=== PATIENT | female | born 1985 | race Caucasian/White ===

== ENCOUNTER 2019-11-21 08:57 | Day surgery (SDC) | payer MEDICAID, SELFPAY ==
[2019-11-17 12:45] VITALS: BMI 23.0
[2019-11-17 13:00] LABS: Basophils # 0.1 10^3/uL (0.0-0.1); Basophils % 1.1 %; Eosinophils # 0.1 10^3/uL (0.0-0.8); Eosinophils % 2.1 %; Hematocrit 44.9 % (37.0-47.0); Hemoglobin 14.3 g/dL (11.5-15.3); Lymphocytes # 1.7 10^3/uL (0.8-4.8); Lymphocytes % 35.8 %; Mean Corpuscular HGB Conc 31.8 g/dL (30.0-36.0); Mean Corpuscular Hemoglobin 29.2 pg (28.0-34.0); Mean Corpuscular Volume 91.6 fL (81-99); Mean Platelet Volume 9.6 fL (7.4-10.4); Monocytes # 0.3 10^3/uL (0.2-0.9); Neutrophils # 2.6 10^3/uL (1.8-7.7); Neutrophils % 54.8 %; Nucleated Red Blood Cells % 0 %; Platelet Count 301 10^3/cmm (130-400); Red Cell Distribution Width 12.8 % (12.1-15.1); White Blood Count 4.7 10^3/uL (4.0-10.0)
--- NOTE | 2019-11-17 13:00 | ANES.PREANE2 ---
Pre-Anesthetic Assessment Pre-Anesthetic Assessment: Height/Weight: Height 1.6 m Weight 58.967 kg Preop Diagnosis: Undesired fertility Proposed Procedure: Operation Date: 11/21/19 10:15 Proposed Procedures p Lap Fulg,Removal of Tubes Sterilization(Not Applicable) - Dawit Coffman MD s Hysteroscopy w/ Ablation w/ Novasure(Not Applicable) - Dawit Coffman MD Familial anesthetic complications: NOne Social: Social History: No alcohol and No tobacco Exam: Pre-Anes Outpt Exam: alert, oriented x 3, clear to auscultation bilaterally and regular rate & rhythm Airway: Cervical ROM: WNL MP: 1 Additional comments: missing Pulmonary: Pulmonary: None reported CV/HEM: CV/HEM: None reported : : None reported Hepatic: Hepatic: None reported GI: GI: None reported Metabolic: Metabolic: None reported Musc/skel: Musc/skel: None reported Comments: ankylosing spondylitis since age 22 - neck pain, back pain, inflammation in hands and arms (sporadic occurence). 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 Neuropsych: Neuropsych: None reported Anesthetic Plan: ASA status: 3 Anesthesia: General Risk of > 500 ml blood loss (7ml/kg in children): No PFSH Anesthesia PFSH: Social History Smoking and tobacco status: former smoker Quit status (tobacco): has quit using tobacco Year quit tobacco: 2016 Former quit date comment: SMOKED FOR 2 YEARS; 1/2PPD Alcohol intake: current Alcohol intake frequency: holidays/special occasions only Alcohol type: wine Female Reproductive History: Date of last menstrual period: 11/06/19 Data Anesthesia Cardiac Studies: No Data to Display
[2019-11-21] VITALS (7 sets, daily range): BP systolic 94–112; BP diastolic 58–72; PULSE 68–96; RESP 14–19; TEMP 36.6–36.7; O2SAT 95–99
[2019-11-21 09:26] LABS: OR HCG Qualitative Urine Negative (Negative)
[2019-11-21] MEDS: ketorolac 30 mg/mL INJ IVP (09:30)
[2019-11-21] MEDS: sodium chloride 0.9% 1,000 ML 30 ML IV (09:31)
[2019-11-21] MEDS: phenazopyridine 100 mg Tablet 200 MG PO (09:44)
--- NOTE | 2019-11-21 10:21 | P.ANESUD_ITS ---
Pre-Anesthetic Update Pre-Anesthetic Assessment: Date of Surgery/Procedure: 11/21/19 Preop Radha gnosis: Undesired Fertility, Menorrhagia Proposed Procedure: Operation Date: 11/21/19 10:20 Proposed Procedures p Lap Fulg,Removal of Tubes Sterilization(Not Applicable) - Dawit Coffman MD s Hysteroscopy w/ Ablation w/ Novasure(Not Applicable) - Dawit Coffman MD Any changes to Pre-Anesthetic Assessment?: No Last Intake: Intake Last Liquid Date 11/20/19 Last Liquid Time 20:00 Last Solid Date 11/20/19 Last Solid Time 21:00 Labs Last 48hrs: Laboratory Results - last 48 hr 11/17/19 12:33 Urine HCG, Qual Negative Vitals: Temperature 97.8 F 11/21/19 09:07 Temperature Source Oral 11/21/19 09:07 Pulse Rate 76 11/21/19 09:07 Pulse Rhythm 11/21/19 09:09 Pulse Strength 3+ Normal 11/21/19 09:09 Respiratory Rate 18 11/21/19 09:07 Blood Pressure 108/71 11/21/19 09:07 Blood Pressure Shannan n 83 11/21/19 09:07 Oxygen Delivery Me thod 11/21/19 09:09 Cardiac Studies: No Data to Display
--- NOTE | 2019-11-21 10:51 | P.HPUD_ITS ---
Surgery/Procedure H&P Update DATE OF PROCEDURE: November 21, 2019 DATE H&P PERFORMED: 11/17/19 H&P UPDATE INFORMATION: I have reviewed H&P completed within last 30 days, I have examined patient prior to procedure, No changes to prior documentation and H&P is in [facility] on date indicated PREOP DIAGNOSIS: Undesired Fertility, Menorrhagia PLANNED PROCEDURE: Operation Date: 11/21/19 10:20 Proposed Procedures p Lap Fulg,Removal of Tubes Sterilization(Not Applicable) - Dawit Coffman MD s Hysteroscopy w/ Ablation w/ Novasure(Not Applicable) - Dawit Coffman MD
--- NOTE | 2019-11-21 12:16 | P.OP_ITS ---
Operative Report Date of procedure: November 21, 2019 Pre-op Diagnosis: Undesired Fertility, Menorrhagia, Dysmenorrhea Post-op Diagnosis: Undesired fertility, Menorrhagia, Dysmenorrhea Procedure Done: Laparoscopic tubal fulguration with complete salpingectomy, Hysteroscopy with NovaSure endometrial ablation Specimens removed/disposition: Right and left fallopian tubes Surgeon: Dawit Coffman Banking Supervisor: LOUIE Woo Anesthesia: General Estimated blood loss (mL): 10 IV fluids (mL): 1,000 Complications: None Findings: First to second-degree uterine prolapse. Normal-appearing ovaries bilaterally. No evidence of endometriosis seen. Brief History: Patient is a 34-year-old 9, para 6-1-2-6 with an LMP of 11/06/2019. She had presented to the office on 09/25/2019 to discuss contraception. She had had a Mirena IUD, which was taken out in July 2019. She had not had a period the entire time she had the Mirena. Following removal though she developed heavy, painful bleeding, which lasted for approximately 8 days. She was changing a pad and a tampon 1-2 times per hour and was still bleeding through to her clothing. She reported having large clots and bad cramping with periods. Because of not wanting any further children, patient wanted to proceed with sterilization. However due to the bleeding, decision was made to also perform an endometrial ablation. Different sterilization options were discussed with her including risks and failure rates. Risk of ectopic was discussed. Questions were answered. She wanted complete removal of the fallopian tubes. Procedure: Patient was taken to the operating room were general anesthesia was obtained. She was prepped and draped in the usual sterile fashion in the dorsal supine position with legs in Kin style stirrups. Sequential compression boots were placed prior to starting the case. Catheter was inserted and bladder was drained. Exam under anesthesia was performed and patient was found to have first to second-degree uterine prolapse. Weighted speculum was placed in the vagina and the cervix was grasped with a single-tooth tenaculum. Uterus was sounded to approximately 9 cm. Cervix was serially dilated until a ZUMI was placed. The infraumbilical region was injected with 2% lidocaine with epinephrine. Skin incision was made with the knife in the lower edge of the navel and a size 5 trocar and sheath were inserted under direct visualization using an Optiview type technique. Trocar was removed and replaced with a laparoscope confirming intra-abdominal placement. The abdomen was inflated with carbon dioxide. Blood was seen at the end of the trocar site in the abdomen and was dripping down from the trocar. No injuries could be identified within the mesentery or omentum at the time. The anterior abdominal wall was inspected and noted to be free of adhesions. In the left and right lower quadrants lateral to the inferior epigastric vessels, the skin was injected with 2% lidocaine with epinephrine. Skin incisions were made with a knife and a 5 mm trocar and sheath were inserted under direct visualization at each site. The pelvis was thoroughly inspected and appeared normal. Using the Voyant sealing device, starting on the left side at the fimbriated end of the tube, the mesosalpinx was sealed and cut along the length of the tube. At the proximal end of the tube, the tube itself was sealed and cut. The fallopian tube was brought out through the port. Using the Voyant sealing device, starting on the right side at the fimbriated end of the tube, the mesosalpinx was sealed and cut along the length of the tube. At the proximal end of the tube, the tube itself was sealed and cut. The fallopian tube was brought out through the port. The dissection area was thoroughly inspected and noted to be hemostatic. Because of the previously seen blood, the mesentery of the bowel was further evaluated. No areas of bleeding or hematoma was noted within the mesentery. No bowel injuries were identified. No bleeding was seen from the area of the aorta or vena cava at the level of the sacral promontory. No areas of bleeding could be identified. The abdomen was deflated and the ports removed. The skin incisions were reapproximated with skin glue. The ZUMI was removed and there was minimal bleeding from the tenaculum site. The cervix was regrasped with a single-tooth tenaculum. A paracervical block was performed with a total of 10 mL of 2% lidocaine with epinephrine used. Hysteroscope was passed through the cervix. Crystalloid solution was used as a distention media. The endometrial cavity was inspected and appeared normal. No polyps or submucosal masses identified. Both tubal ostia were identified. Using the NovaSure sound, endometrial cavity length was measured at 5.5 cm. The NovaSure device was inserted and device was deployed. The device was moved up and down and left and right until no further with adjustment occurred. Uterine width was measured at 4.3 cm. Settings were entered in the NovaSure machine and wattage was set at 130 Beard. Cavity integrity check was performed and integrity confirmed. Device was then activated. Total treatment time was 53 seconds. Device was removed. The tenaculum was removed and there was minimal bleeding from the tenaculum site. Patient tolerated the procedure well. Sponge and needle counts were correct. DRAINS: None POSTOPERATIVE STATUS: The patient was transferred to the recovery room in satisfactory condition. DISPOSITION: Discharge to home when criteria was met. FOLLOWUP APPOINTMENT: Followup appointment is scheduled in my office in approximately 2 weeks. MEDICATIONS: Patient received prescriptions for: Irving 5/325, 1 to 2 tablets every 6 hours as needed for pain, #20, 0 refills Ibuprofen 800 mg, 1 tablet 3 times a day as needed for pain, #30, 0 refills.
[2019-11-21] MEDS: ondansetron 2 mg/ML SDV 2 mL 4 MG IVP (12:27)
[2019-11-21] MEDS: HYDROcodone-acetaminophen 5-325 mg Tablet PO (13:17)
== END 2019-11-21 13:47 | disposition home or self-care (01) ==
PROVIDERS: Family Provider Nurse Practitioner Family; PCP Family Medicine; Visit Provider Obstetrics & Gynecology
PROC: (CPT 58661; principal; 2019-11-21 10:20)
PROC: 0U598ZZ Destruction of Uterus, Via Natural or Artificial Opening Endoscopic (ICD-10-PCS; CPT 58563; 2019-11-21 10:20)
DX: Z30.2 Encounter for sterilization (principal); N92.0 Excessive and frequent menstruation with regular cycle; N94.6 Dysmenorrhea, unspecified; G89.18 Other acute postprocedural pain; Z82.49 Family history of ischemic heart disease and other diseases of the circulatory system; Z87.891 Personal history of nicotine dependence
CPT/HCPCS: 58563; 58670; 12345; 36415; 81025; 84703; 85025; 88302; 96375; J1100; J1885; J2001; J2250; J2405; J2704; J2710; J3010; J3490; J7030

== ENCOUNTER 2019-12-02 11:30 | Emergency (ER) | payer MEDICAID, SELFPAY ==
[2019-12-02 11:32] VITALS: BP 112/65; PULSE 90; RESP 16; TEMP 37.1; O2SAT 98; BMI 21.2
[2019-12-02 11:46] VITALS: RESP 17
--- NOTE | 2019-12-02 11:48 | XR_ITS ---
WS: [id number] XR foot LT min 3V* [id number] REASON FOR EXAM: injury, pain FINDINGS: This study shows an os tibialis externum. The remaining phalanges, metatarsals, tarsals were normal. The calcaneus appear to be normal. No soft tissue masses. XR/XR foot LT min 3V* [id number] IMPRESSION: Negative foot for acute changes A prominent os tibialis externum is seen.
--- NOTE | 2019-12-02 11:49 | ED_ITS ---
HPI - Extremity Problem General: Chief complaint: Extremity Injury, Lower Stated complaint: LEFT FOOT PAIN Time Seen by Provider: 12/02/19 11:38 History of Present Illness: HPI Narrative: Angely Pablo comes in today for complaints of injury to the left foot. Patient reports getting bucked off her horse and her left foot getting entangled in the stirrup. Patient appears well. Patient has been weightbearing to the foot. Patient does have some bruising to the dorsal, proximal, lateral aspect of the foot. No obvious deformity. MD Complaint: extremity pain Review of Systems General: Reports: 10 or more systems reviewed and unremarkable except in HPI and below Musc: Reports: joint pain PFSH ED PFSH: Medical History (Updated 12/02/19 @ 12:31 by FEROZ Goodrich) Dysmenorrhea Menorrhagia Surgical History (Updated 11/19/19 @ 18:59 by Dawit Coffman MD) History of cholecystectomy (~2002) Laparoscopic. Performed in [place]. Hx of laparoscopy (~2008) evaluation for pain. Diagnosed with endometriosis which was ablated. Performed at [facility] in [place]. Social History (Updated 11/19/19 @ 19:01 by Dawit Coffman MD) Smoking and tobacco status: former smoker Quit status (tobacco): has quit using tobacco Year quit tobacco: 2017 Former quit date comment: SMOKED FOR 2 YEARS; 1/2PPD Alcohol intake: current Alcohol intake frequency: holidays/special occasions only Alcohol type: wine Female Reproductive History: Date of last menstrual period: 11/19/19 Physical Exam Const: COMMON NORMALS: no apparent distress and oriented x3 GENERAL APPEARANCE: cooperative HENMT: COMMON NORMALS: normocephalic, external ears normal, EAC's normal, TM's normal bilaterally and external nose normal HEAD & SCALP: normal to inspection and normocephalic FACE & SINUS: normal facial exam NOSE: external nose normal GENERAL EAR: hearing not grossly impaired EXTERNAL EAR: Yes external ears normal EXTERNAL AUDITORY CANAL: EAC's normal TYMPANIC MEMBRANE: TM's normal bilaterally MOUTH: oral and palatal mucosa normal THROAT: posterior oropharynx normal Eye: COMMON NORMALS: PERRL and EOMs intact bilaterally PUPIL: Yes PERRL Neck/C-Spine: COMMON NORMALS: full ROM and no lymphadenopathy Lymph: LYMPHATIC: no lymphedema noted Chest: COMMONS NORMALS: inspection of chest normal and palpation of chest normal Resp: COMMON NORMALS: normal respiratory effort and clear to auscultation bilaterally AUSCULTATION: clear to auscultation bilaterally Cardio: COMMON NORMALS: regular rate and regular rhythm RATE: regular rate RHYTHM: regular rhythm GI: COMMON NORMALS: normal to inspection, nondistended, normoactive bowel sounds and non-tender : COMMON NORMALS: Yes no CVA tenderness BLADDER/KIDNEY EXAM: Yes no CVA tenderness Back/Pelvis: COMMON NORMALS: no CVA tenderness and thoracic and lumbar spine normal to inspection Extremity: NARRATIVE EXTREMITY EXAM: Ecchymosis, swelling, and tenderness is noted to the lateral dorsal aspect of the left foot. Distal neurovascular is normal. Patient is guarded with moving the middle digits but shows movement to the fifth and first digit. Prompt capillary refill is noted. Pedal pulses are intact. No ankle pain is noted on deep palpation. GENERAL: Yes edema Neuro: COMMON NORMALS: oriented x3, moves all extremities and no focal motor deficits Psych: COMMON NORMALS: mental status grossly normal and cooperative Skin: COMMON NORMALS: no rashes or lesions noted GENERAL SKIN EXAM: no rashes or lesions noted Course Vital Signs: Vital signs: Vital Signs Temperature 98.7 F 12/02/19 11:32 Pulse Rate 90 12/02/19 11:32 Respiratory Rate 17 12/02/19 11:46 Blood Pressure 112/65 12/02/19 11:32 Pulse Oximetry 98 12/02/19 11:32 MDM - Extremity (Nontraumatic) MDM Narrative: Medical decision making narrative: Patient comes in today with complaints of injury to the left foot. Patient explains a [facility] a [facility]. On exam patient has bruising to the dorsal aspect of the foot with minimal swelling. Pulses are intact. Patient has pain with movement of the middle digits of the foot. Prompt capillary refill is noted. Differential diagnosis includes fracture, sprain, contusion. X-rays were without obvious fracture to the foot. Due to the nature of the injury suspect possibly a navicular fracture although this was not indicated on x-ray. Patient was placed in a orthopedic boot and recommended to do know to light weightbearing to the foot especially with any pain. Patient was prescribed crutches and need for follow-up with orthopedist or podiatry. Patient reported understanding. Discharge Plan Discharge Patient Disposition: Home, Self-Care Clinical Impression: Foot sprain Qualifiers: Encounter type: initial encounter Laterality: left Qualified Code(s): S93.602A - Unspecified sprain of left foot, initial encounter Condition: Stable Prescriptions: New hydrocodone-acetaminophen 5-325 mg tablet 1 tab PO Q8H PRN (Reason: pain (scale score 7-10)) Qty: 5 RF: 0 No Action promethazine 25 mg tablet 25 mg PO Q6H PRN (Reason: nausea and vomiting) Qty: 20 RF: 0 ibuprofen 800 mg tablet 800 mg PO TID PRN (Reason: pain) Qty: 30 RF: 0 Discharge Orders: Discharge Order (Routine); Ordered 12/02/19 Ordered By: Gutierrez Mariano Referrals: Viry Trinidad FNP [Family Provider] - Caitie Giraldo MD [Primary Care Provider] - Discharge Diet: Usual diet Discharge Activity: Increase activity as tolerated Patient Instructions: Foot Sprain (ED) Activity Restrictions/Additional Instructions: no weight bearing until you can do it without pain Crutches Orthopedic boot for comfort Drink plenty of fluids with medications Follow-up with primary care in one week Follow-up with podiatry for further evaluation and treatment Coding Level of Care Code ED Indoor Plant Technician for Jaquan Fwd Exam Comprehensive
[2019-12-02 12:44] VITALS: RESP 16
--- NOTE | 2019-12-04 12:41 | DCPLANNER ---
marketing traffic manager had message to schedule a follow up appointment for patient with ortho. marketing traffic manager called the ortho clinic, spoke with Pat, gave clinic patients information. marketing traffic manager was told that patients information would be printed and reviewed. Clinic will call manager case and patient with appointment information.
--- NOTE | 2019-12-05 15:47 | DCPLANNER ---
Patient has a follow up appointment scheduled for Sunday, December 08, 2019 at 2:[address] Spain, clinic will call patient with appointment information.
--- NOTE | 2019-12-12 10:38 | DCPLANNER ---
Patient did not attend appointment scheduled for 12.08.19 with ortho.
== END 2019-12-02 12:44 | disposition home or self-care (01) ==
PROVIDERS: Emergency Provider Nurse Practitioner Family; Family Provider Nurse Practitioner Family; PCP Family Medicine
DX: S93.602A Unspecified sprain of left foot, initial encounter (principal); Z87.891 Personal history of nicotine dependence; V80.010A Animal-rider injured by fall from or being thrown from horse in noncollision accident, initial encounter; Y93.52 Activity, horseback riding
CPT/HCPCS: 12345; 73630; 99281; 99283; E0114

== ENCOUNTER 2019-12-12 14:54 | Outpatient (CLI) | payer MEDICAID, SELFPAY ==
--- NOTE | 2019-12-12 15:20 | MR_ITS ---
WS: [id number] INDICATION: Left foot pain TECHNIQUE: MRI of the left foot without gadolinium enhancement. Axial T1 and axial STIR axial PD axia l T2 sagittal STIR coronal PD coronal T2 FINDINGS: Second metatarsal normally aligned with the second cuneiform. Metatarsal bases are normal i n appearance. Normal metatarsals. Mild hallux valgus. Diffuse edema consistent with nondisplaced fracture involving the cuboid. Diffuse edema involving the mid distal cuboid extending to the TMT joint with edema. Diffuse soft tissue edema overlying the lat eral foot. Navicular appears intact. Cuneiforms appear intact. Normal distal Achilles. Normal peroneal tendons. Normal flexor compartment tendons. Normal plantar fascia. No other visualized acute fractures. Talar dome is normal. Normal calcaneus. MR/MR foot LT wo con* [id number] IMPRESSION: 1. Nondisplaced acute fracture involving the cuboid with diffuse edema extend ing into the TMT joint with edema in the joint. Metatarsal bases appear normal. 2. Diffuse soft tissue edema overlying the lateral aspect of the foot. 3. Cuneiforms appear normal. 4. Mild hallux valgus. 5. No other visualized fractures.
== END 2019-12-12 14:55 | disposition home or self-care (01) ==
PROVIDERS: Family Provider Nurse Practitioner Family; PCP Family Medicine; Visit Provider Orthopaedic Surgery
DX: S92.215A Nondisplaced fracture of cuboid bone of left foot, initial encounter for closed fracture (principal); X58.XXXA Exposure to other specified factors, initial encounter; M79.672 Pain in left foot
CPT/HCPCS: 73718

== ENCOUNTER → 2020-06-07 10:31 | Outpatient (BNVA) | payer MEDICAID, SELFPAY | PROVIDERS: Family Provider Nurse Practitioner Family; PCP Family Medicine; Visit Provider Nurse Practitioner Family | DX: R07.9 Chest pain, unspecified (principal); R53.83 Other fatigue | CPT/HCPCS: 71046; 80053; 80061; 82306; 82607; 83735; 84443; 85025; 85379 ==

== ENCOUNTER → 2020-06-19 12:07 | Outpatient (BNVA) | payer MEDICAID, SELFPAY | PROVIDERS: Family Provider Nurse Practitioner Family; PCP Family Medicine; Visit Provider Nurse Practitioner Family | DX: R50.9 Fever, unspecified (principal) | CPT/HCPCS: 87071; 87880 ==

== ENCOUNTER → 2021-05-06 12:15 | Outpatient (BNVA) | payer BC, SELFPAY | PROVIDERS: Family Provider Nurse Practitioner Family; PCP Nurse Practitioner Family; Visit Provider Nurse Practitioner Family | DX: J02.9 Acute pharyngitis, unspecified (principal); Z20.822 Contact with and (suspected) exposure to COVID-19; J06.9 Acute upper respiratory infection, unspecified | CPT/HCPCS: 87071; 87635; 87880 ==

== ENCOUNTER → 2021-06-16 11:56 | Outpatient (BNVA) | payer BC, SELFPAY | PROVIDERS: Family Provider Nurse Practitioner Family; PCP Nurse Practitioner Family; Visit Provider Nurse Practitioner Family | DX: N63.0 Unspecified lump in unspecified breast (principal) | CPT/HCPCS: 80053; 84145; 84146; 84443; 85025 ==

== ENCOUNTER 2021-10-20 06:31 | Emergency (ER) | payer BC, MEDICAID, SELFPAY ==
[2021-10-20 06:37] VITALS: BP 100/70; PULSE 103; RESP 18; TEMP 38.3; O2SAT 99; BMI 23.0
[2021-10-20 06:44] VITALS: O2SAT 98
--- NOTE | 2021-10-20 08:13 | W.ED.COVID ---
Documented by User: FEROZ Baker 10/20/21 16:31 HPI - COVID General: Chief Complaint: COVID symptoms Stated Complaint: fever, sob Time Seen by Provider: 10/20/21 06:56 Triage information: Has fever, cough or shortness of breath. No known COVID + exposure last 14 days History of Present Illness: HPI Narrative: Patient presents with Covid-like symptoms. Patient has been traveling out of state. Patient presented and started with symptoms yesterday of high fever body aches chills nausea congestion. Denies shortness of breath. MD complaint: reported COVID exposure and has COVID symptoms Prior covid testing: no COVID 19 common symptoms: positive fever(s), chills, fatigue, body aches, headache(s), nasal congestion and nausea; negative non-productive cough, productive cough or dyspnea COVID 19 other sytmptoms: negative chest pain Treatment prior to arrival: acetaminophen and ibuprofen COVID Results: SARS-CoV-2 RNA (RT-PCR) Not detected (NOT DETECTED) 05/06/21 12:15 05/06/21 Review of Systems Const: Reports: fever(s), chills, body aches and fatigue Eyes: Denies: change in vision or blurry vision ENMT: Reports: nasal congestion Card: Denies: chest pain or dyspnea on exertion Resp: Denies: dyspnea, productive cough or non-productive cough GI: Reports: nausea Musc: Denies: extremity pain Skin/Breast: Denies: rash Neuro: Reports: headache(s) Psych: Denies: anxiety or depression Delon/Lymph: Denies: easy bruising PFS ED PFSH: Medical History Contraception management 11/21/2019: Laparoscopic bilateral complete salpingectomy. Dysmenorrhea Menorrhagia Surgical History History of cholecystectomy (~2002) Laparoscopic. Performed in [place]. History of endometrial ablation (11/21/19) Hysteroscopy with NovaSure endometrial ablation. Dx menorrhagia, Dysmenorrhea. Performed by Dr. Coffman at [facility] in [place], [place]. History of tubal ligation (11/21/19) Laparoscopic bilateral complete salpingectomy. Performed by Dr. Coffman at [facility] in [place], [place]. Hx of laparoscopy (~2008) evaluation for pain. Diagnosed with endometriosis which was ablated. Performed at [facility] in [place]. Family History Grandfather Heart disease PATERNAL Mother Breast cancer Grandmother Breast cancer Maternal Family/Other Breast cancer GREAT-GRANDMOTHER Father Heart disease Social History Smoking and tobacco status: never smoked Quit status (tobacco): has quit using tobacco Year quit tobacco: 2016 Former quit date comment: SMOKED FOR 2 YEARS; 1/2PPD Second hand smoke exposure: No Alcohol intake: current Alcohol intake frequency: holidays/special occasions only Alcohol type: wine Lives independently: Yes Household members: significant other Marital status: Current occupational status: employed 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; 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 History of recent travel: No Current gender identity: Female Special eunice needs: Yes Agree to transfusion: Yes Female Reproductive History: Date of last menstrual period: 11/19/19 Physical Exam Const: COMMON NORMALS: no acute distress, average body habitus and patient oriented x3 HENMT: COMMON NORMALS: normocephalic HEAD & SCALP: normal to inspection and normocephalic FACE & SINUS: normal facial exam Eye: COMMON NORMALS: conjunctivae normal GENERAL EYE: appearance normal, both eyes and all related structures CONJUNCTIVA: Yes conjunctivae normal Neck/C-Spine: COMMON NORMALS: no JVD Chest: COMMONS NORMALS: normal inspection of the chest Resp: COMMON NORMALS: normal respiratory effort Cardio: COMMON NORMALS: no JVD RATE: tachycardic GI: INSPECTION: Yes normal to inspection Extremity: COMMON NORMALS: normal to inspection and full ROM Neuro: COMMON NORMALS: patient oriented x3 Course Vital Signs: Vital signs: Vital Signs Temperature 100.9 F H 10/20/21 06:37 Pulse Rate 103 H 10/20/21 06:37 Respiratory Rate 18 10/20/21 06:37 Blood Pressure 100/70 10/20/21 06:37 Pulse Oximetry 98 10/20/21 06:44 MDM - COVID MDM Narrative Medical decision making narrative: Patient presents with mild Covid-like symptoms. Lab tests obtained awaiting results. Medication prescribed patient encouraged follow-up your primary care provider if worsening symptoms. Lab Data COVID Results: SARS-CoV-2 RNA (RT-PCR) Not detected (NOT DETECTED) 05/06/21 12:15 05/06/21 Discharge Plan Discharge Patient Disposition: Home Clinical Impression: Close exposure to severe acute respiratory syndrome coronavirus 2 (SARS-CoV-2), Close exposure to 2019-nCoV Condition: Stable Prescriptions: New Zofran 4 mg tablet 4 mg PO Q8H 3 Days Qty: 9 0RF Decadron 6 mg tablet 6 mg PO DAILY Qty: 7 0RF No Action dexamethasone 6 mg tablet 6 mg PO DAILY Qty: 7 0RF albuterol sulfate [ProAir HFA] 90 mcg/actuation HFA aerosol inhaler 2 puff INHALATION Q6H PRN (Reason: shortness of breath or wheezing) Qty: 18 2RF ibuprofen 800 mg tablet 800 mg PO TID PRN (Reason: pain) Qty: 30 0RF Discharge Orders: Discharge ED (Routine); Ordered 10/20/21 Ordered By: Uziel Sanchez Referrals: Eugenia Ramirez FNP [Primary Care Provider] - Discharge Diet: As Directed Discharge Activity: Increase activity as tolerated Patient Instructions: COVID-19 (Coronavirus Disease 2019) (ED) Activity Restrictions/Additional Instructions: Follow-up with medical provider as directed. Take medications as prescribed. Return to the ER or your medical provider if condition worsens. Please read and understand discharge instructions. If any questions ask please. Coding Level of Care Code ED Photograph Editor for g Fwd Exam Comprehensive Documented by User: Tommy Ware DO 10/21/21 06:20 HPI - COVID General: Chief Complaint: COVID symptoms Stated Complaint: fever, sob Time Seen by Provider: 10/20/21 06:56 COVID Results: SARS-CoV-2 RNA (RT-PCR) Not detected (NOT DETECTED) 05/06/21 12:15 05/06/21 [facility] ED PFSH: Medical History Contraception management 11/21/2019: Laparoscopic bilateral complete salpingectomy. Dysmenorrhea Menorrhagia Surgical History History of cholecystectomy (~2002) Laparoscopic. Performed in [place]. History of endometrial ablation (11/21/19) Hysteroscopy with NovaSure endometrial ablation. Dx menorrhagia, Dysmenorrhea. Performed by Dr. Coffman at [facility] in [place], [place]. History of tubal ligation (11/21/19) Laparoscopic bilateral complete salpingectomy. Performed by Dr. Coffman at [facility] in [place], [place]. Hx of laparoscopy (~2008) evaluation for pain. Diagnosed with endometriosis which was ablated. Performed at [facility] in [place]. Family History Grandfather Heart disease PATERNAL Mother Breast cancer Grandmother Breast cancer Maternal Family/Other Breast cancer GREAT-GRANDMOTHER Father Heart disease Social History Smoking and tobacco status: never smoked Quit status (tobacco): has quit using tobacco Year quit tobacco: 2016 Former quit date comment: SMOKED FOR 2 YEARS; 1/2PPD Second hand smoke exposure: No Alcohol intake: current Alcohol intake frequency: holidays/special occasions only Alcohol type: wine Lives independently: Yes Household members: significant other Marital status: Current occupational status: employed 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 Agree with assessment and plan. Lab Data COVID Results: SARS-CoV-2 RNA (RT-PCR) Not detected (NOT DETECTED) 05/06/21 12:15 08/10/21 Discharge Plan Discharge Patient Disposition: Home Clinical Impression: Close exposure to severe acute respiratory syndrome coronavirus 2 (SARS-CoV-2), Close exposure to 2019-nCoV Condition: Stable Prescriptions: New Zofran 4 mg tablet 4 mg PO Q8H 3 Days Qty: 9 0RF Decadron 6 mg tablet 6 mg PO DAILY Qty: 7 0RF No Action dexamethasone 6 mg tablet 6 mg PO DAILY Qty: 7 0RF albuterol sulfate [ProAir HFA] 90 mcg/actuation HFA aerosol inhaler 2 puff INHALATION Q6H PRN (Reason: shortness of breath or wheezing) Qty: 18 2RF ibuprofen 800 mg tablet 800 mg PO TID PRN (Reason: pain) Qty: 30 0RF Discharge Orders: Discharge ED (Routine); Ordered 10/20/21 Ordered By: Uziel Sanchez Referrals: Eugenia Ramirez FNP [Primary Care Provider] - Discharge Diet: As Directed Discharge Activity: Increase activity as tolerated Patient Instructions: COVID-19 (Coronavirus Disease 2019) (ED) Activity Restrictions/Additional Instructions: Follow-up with medical provider as directed. Take medications as prescribed. Return to the ER or your medical provider if condition worsens. Please read and understand discharge instructions. If any questions ask please. Coding Level of Care Code ED Photograph Editor for Jaquan Fwd Exam Comprehensive
== END 2021-10-20 08:19 | disposition home or self-care (01) ==
PROVIDERS: Emergency Provider Nurse Practitioner Family; PCP Nurse Practitioner Family
DX: Z20.822 Contact with and (suspected) exposure to COVID-19 (principal); Z87.891 Personal history of nicotine dependence
CPT/HCPCS: 12345; 99281

== ENCOUNTER → 2021-12-18 12:02 | Outpatient (BNVA) | payer BC, MEDICAID, SELFPAY | PROVIDERS: PCP Nurse Practitioner Family; Visit Provider Nurse Practitioner Family | DX: Z00.00 Encounter for general adult medical examination without abnormal findings (principal); Z12.4 Encounter for screening for malignant neoplasm of cervix | CPT/HCPCS: 87624 ==

== ENCOUNTER 2022-05-24 11:20 | Emergency (ER) | payer BC, MEDICAID, SELFPAY ==
[2022-05-24 11:22] VITALS: BP 104/71; PULSE 74; RESP 16; TEMP 36.6; O2SAT 100; BMI 23.0
--- NOTE | 2022-05-24 11:36 | XRR_ITS ---
PROCEDURE INFORMATION: Exam: XR Left Forearm Exam date and time: 05/24/2022 12:01 PM Age: 37 years old Clinical indication: Injury or trauma; Other: Kicked by horse; Blunt trauma (contusions or hematomas); Arm, upper; Left TECHNIQUE: Imaging protocol: Radiologic exam of the Left forearm. Views: 2 views. COMPARISON: No relevant prior studies available. FINDINGS: Bones/joints: Normal. Soft tissues: Normal. XR/XR forearm LT 2V [id number] IMPRESSION: No acute findings.
--- NOTE | 2022-05-24 11:44 | ED_ITS ---
HPI - Extremity Problem General: Chief complaint: Extremity Injury, Upper Stated complaint: Left Arm injury Time Seen by Provider: 05/24/22 11:36 Source: patient Mode of arrival: ambulatory Limitations: no limitations History of Present Illness: 37-year-old female presents to the ER today for left forearm pain x24 hours. Patient reports she was kicked by a horse yesterday afternoon. Patient reports she has a small skin abrasion. She reports some mild swelling and bruising to the area. She reports pain specifically over the area of hit her but also pain radiating up into the elbow and down into her hand. Patient reports tingling but denies any numbness. Patient reports normal range of motion though some pain elicited with movement of the wrist. Review of Systems General: Reports: 10 or more systems reviewed and unremarkable except in HPI and below PFSH ED PFSH: Medical History Contraception management 11/21/2019: Laparoscopic bilateral complete salpingectomy. Dysmenorrhea Menorrhagia Surgical History History of cholecystectomy (~2002) Laparoscopic. Performed in [place]. History of endometrial ablation (11/21/19) Hysteroscopy with NovaSure endometrial ablation. Dx menorrhagia, Dysmenorrhea. Performed by Dr. Coffman at [facility] [place] [place] in [place], [place]. History of tubal ligation (11/21/19) Laparoscopic bilateral complete salpingectomy. Performed by Dr. Coffman at [facility] [place] in [place], [place]. Hx of laparoscopy (~2008) evaluation for pain. Diagnosed with endometriosis which was ablated. Performed at [facility] in [place]. Family History Grandfather Heart disease PATERNAL Mother Breast cancer Grandmother Breast cancer Maternal Family/Other Breast cancer GREAT-GRANDMOTHER Father Heart disease Social History Smoking and tobacco status: never smoked Quit status (tobacco): has quit using tobacco Year quit tobacco: 2016 Former quit date comment: SMOKED FOR 2 YEARS; 1/2PPD Second hand smoke exposure: No Alcohol intake: current Alcohol intake frequency: holidays/special occasions only Alcohol type: wine Lives independently: Yes Household members: significant other Marital status: Current occupational status: employed 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; 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 History of recent travel: No Current gender identity: Female Special eunice needs: Yes Agree to transfusion: Yes Female Reproductive History: Date of last menstrual period: 11/19/19 Physical Exam Const: COMMON NORMALS: no acute distress, average body habitus, patient oriented x3, no limitations, healthy appearing, alert and well nourished Resp: COMMON NORMALS: normal respiratory effort EFFORT & INSPECTION: Yes able to speak in complete sentences Cardio: COMMON NORMALS: regular rate and regular rhythm RATE: regular rate RHYTHM: regular rhythm Extremity: NARRATIVE EXTREMITY EXAM: Patient has a an abrasion to the left distal forearm. This is not bleeding and does not appear infected. There is also bruising surrounding this area. Patient is tender over the area of the skin abrasion and has some pain with flexion and extension of the wrist with movement. No major swelling is noted. Patient has normal pulses. Normal sensation. Neuro: COMMON NORMALS: patient oriented x3 SENSORIUM/ORIENTATION: Yes alert Psych: COMMON NORMALS: mental status grossly normal, Normal thought process present and cooperative THOUGHT PROCESS: Normal thought process present Skin: COMMON NORMALS: no rashes or lesions noted NARRATIVE SKIN EXAM: Skin abrasion to left forearm that does not appear infected. GENERAL SKIN EXAM: no rashes or lesions noted Course ED course: 37-year-old female presents to the ER today for left forearm pain x24 hours. Patient reports she was kicked by a horse yesterday afternoon. Patient reports she has a small skin abrasion. She reports some mild swelling and bruising to the area. She reports pain specifically over the area of hit her but also pain radiating up into the elbow and down into her hand. Patient reports tingling but denies any numbness. Patient reports normal range of motion though some pain elicited with movement of the wrist. We will get an x- ray of the forearm at this time. Vital Signs: Vital signs: Vital Signs Temperature 97.9 F 05/24/22 11:22 Pulse Rate 74 05/24/22 11:22 Respiratory Rate 16 05/24/22 11:22 Blood Pressure 104/71 05/24/22 11:22 Pulse Oximetry 100 05/24/22 11:22 Oxygen Delivery Me thod 05/24/22 11:22 MDM - Extremity (Nontraumatic) Medical Decision Making 37-year-old female presents to the ER today for left forearm pain x24 hours. Patient reports she was kicked by a horse yesterday afternoon. Patient reports she has a small skin abrasion. She reports some mild swelling and bruising to the area. She reports pain specifically over the area of hit her but also pain radiating up into the elbow and down into her hand. Patient reports tingling but denies any numbness. Patient reports normal range of motion though some pain elicited with movement of the wrist. We will get an x-ray of the forearm at this time. X-rays negative. Recommended patient apply topical antibiotic such as Neosporin to skin wound. Recommend ice 20 minutes on and 2 minutes off for the next week or so. Take naproxen or Aleve twice daily x 1 week. Likely this is just a bad bruise. Follow-up with PCP in 1 to 2 weeks if no improvement. Return to the ER with any new or worsening symptoms. Patient verbalized understanding and was in agreement with the treatment plan. Lab Data Radiology Impressions Forearm X-Ray 05/24/22 11:36 IMPRESSION: No acute findings. Critical Care Time Critical Care Time: Critical Care Time: No Discharge Plan Discharge Patient Disposition: Home Clinical Impression: Contusion of forearm, left Qualifiers: Encounter type: initial encounter Qualified Code(s): S50.12XA - Contusion of left forearm, initial encounter Condition: Stable Prescriptions: No Action promethazine-DM 6.25-15 mg/5 mL syrup 5 - 10 ml PO Q6H PRN (Reason: cough) Qty: 200 0RF azithromycin [Zithromax Z-Francisco] 250 mg tablet See Rx Instructions PO .COMPLEX Qty: 6 0RF Rx Instructions: For 250 mg dose pack: take 500 mg today (day 1), then 250 mg for 4 days (days 2-5) PO methylprednisolone [Medrol (Francisco)] 4 mg tablets,dose pack See Rx Instructions PO PER PKG DIR Qty: 21 0RF Rx Instructions: PO PER PKG DIR albuterol sulfate [ProAir HFA] 90 mcg/actuation HFA aerosol inhaler 2 puff inhalation QID PRN (Reason: shortness of breath or wheezing) Qty: 8.5 6RF budesonide-formoterol [Symbicort] 160-4.5 mcg/actuation HFA aerosol inhaler 2 puff inhalation Q12H Qty: 10.2 5RF ibuprofen 800 mg tablet 800 mg PO TID PRN (Reason: pain) Qty: 30 0RF Discharge Orders: Discharge ED (Routine); Ordered 05/24/22 Ordered By: Heather Lambert Referrals: Eugenia Ramirez FNP [Primary Care Provider] - Discharge Diet: Usual diet Discharge Activity: Increase activity as tolerated Patient Instructions: Opioid Safety Activity Restrictions/Additional Instructions: Apply ice to forearm to reduce swelling. Apply topical antibiotic to skin wound. Take ibuprofen, Aleve or naproxen x1 week. Follow-up with PCP in 1 to 2 weeks if no improvement. Return to the ER with any new or worsening symptoms. Coding Level of Care Code ED Patient Financial Services Manager for Jaquan Locke
[2022-05-24 12:00] VITALS: PULSE 72
== END 2022-05-24 12:40 | disposition home or self-care (01) ==
PROVIDERS: Emergency Provider Physician Assistant; PCP Nurse Practitioner Family
DX: S50.12XA Contusion of left forearm, initial encounter (principal); Z87.891 Personal history of nicotine dependence; W55.12XA Struck by horse, initial encounter
CPT/HCPCS: 73090; 99283

== ENCOUNTER → 2022-12-10 10:38 | Outpatient (BNVA) | payer BC, MEDICAID, SELFPAY | PROVIDERS: PCP Nurse Practitioner Family; Visit Provider Nurse Practitioner Family | DX: Z00.00 Encounter for general adult medical examination without abnormal findings (principal); R53.83 Other fatigue; Z13.6 Encounter for screening for cardiovascular disorders; N63.0 Unspecified lump in unspecified breast | CPT/HCPCS: 80053; 80061; 84443; 85025 ==

== ENCOUNTER → 2023-12-17 15:12 | Outpatient (BNVA) | payer BC, MEDICAID, SELFPAY | PROVIDERS: PCP Nurse Practitioner Family; Visit Provider Nurse Practitioner Family | DX: R07.0 Pain in throat (principal) | CPT/HCPCS: 87071; 87880 ==

== ENCOUNTER 2024-05-02 14:53 | Emergency (ER) | payer BC, MEDICAID, SELFPAY ==
[2024-05-02 15:15] VITALS: BP 99/68; PULSE 91; RESP 16; TEMP 36.8; O2SAT 96
[2024-05-02 16:03] LABS: HCG, Serum Qual Negative (Negative)
[2024-05-02 16:14] LABS: Charge for UA Resulting for Rev
[2024-05-02 16:44] LABS: Urine Appearance Slightly Cloudy (CLEAR); Urine Color Orange (Yellow)
[2024-05-02 16:47] LABS: Add Urine Culture? Yes; Bacteria Urine 1+ /hpf; WBC Urine >100 /hpf (0-5)
[2024-05-02 17:29] LABS: Basophils % 0.4 %; Eosinophils # 0.1 10^3/uL (0.0-0.8); Hematocrit 41.8 % (36-47); Lymphocytes # 1.3 10^3/uL (0.8-4.8); Lymphocytes % 14.1 %; Mean Corpuscular HGB Conc 31.8 g/dL (30-55); Mean Corpuscular Hemoglobin 28.7 pg (27-33); Mean Corpuscular Volume 90.3 fl (85-98); Monocytes # 0.5 10^3/uL (0.2-0.9); Monocytes % 5.4 %; Neutrophils % 78.8 %; Nucleated Red Blood Cells % 0 %; Platelet Count 283 10^3/cmm (157-399); Red Blood Count 4.63 10^6/uL (3.85-5.65); Red Cell Distribution Width 12.6 % (12.1-15.1)
--- NOTE | 2024-05-02 17:35 | W.ED.FEMALGU ---
HPI - Female Genitourinary General: Chief complaint: Urogenital-Female Stated complaint: painful urination Time Seen by Provider: 05/02/24 17:11 Source: patient Mode of arrival: ambulatory Limitations: no limitations History of Present Illness: Patient presents emergency department today accompanied by family for evaluation and treatment of dysuria and urinary frequency. Patient states she noticed onset of symptoms . She states she seems to have recurrent issues with urinary tract infections and urinary symptoms. She states she went to the [facility] and got Azo which she has been taking since that time. However, she continues to have her symptoms which is what brings her in today. She has not had nausea, vomiting, or fever. She complains of some low back ache but no flank pain or mid back pain. She indicated that back in 2008 she had been having issues with UTIs and had a procedure performed on her bladder-not sure what they did, but since then has still had off-and-on issues with recurrent urinary symptoms. Does not have a urologist currently. Review of Systems General: Reports: 10 or more systems reviewed and unremarkable except in HPI and below PFSH ED PFSH: Medical History Contraception management 11/21/2019: Laparoscopic bilateral complete salpingectomy. Dysmenorrhea Menorrhagia Surgical History History of tubal ligation (11/21/19) Laparoscopic bilateral complete salpingectomy. Per[place]. Coffman [place] [facility] [place], [place]. History of endometrial ablation (11/21/19) Hysteroscopy with NovaSure endometrial ablation. Dx menorrhagia, Dysmenorrhea. Performed by Dr. Coffman at [facility] [place], [place]. Hx of laparoscopy (~2008) evaluation for pain. Diagnosed with endometriosis which was ablated. Performed at [facility] in [place]. History of cholecystectomy (~2002) Laparoscopic. Performed in [place]. Family History Grandfather Heart disease PATERNAL Mother Breast cancer Grandmother Breast cancer Maternal Family/Other Breast cancer GREAT-GRANDMOTHER Father Heart disease Social History Smoking and tobacco/nicotine status: never used tobacco/nicotine Quit status (tobacco/nicotine): has quit using Year quit tobacco: 2017 Former quit date comment: SMOKED FOR 2 YEARS; 1/2PPD Second hand smoke exposure: No Alcohol intake: current Alcohol intake frequency: holidays/special occasions only Alcohol type: wine Substance/Drug Use: never Lives independently: Yes Household members: significant other Marital status: Current occupational status: employed 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; 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 Current gender identity: Female Special eunice needs: Yes Agree to transfusion: Yes Physical Exam Const: COMMON NORMALS: no acute distress, average body habitus, patient oriented x3 and alert HENMT: COMMON NORMALS: normocephalic, atraumatic, hearing grossly normal bilaterally and moist oral mucous membranes HEAD & SCALP: normocephalic and atraumatic Eye: COMMON NORMALS: Equal, round and reactive pupils present, EOMs intact bilaterally and conjunctivae normal CONJUNCTIVA: Yes conjunctivae normal PUPIL: Yes Equal, round and reactive pupils present Neck/C-Spine: COMMON NORMALS: no JVD Lymph: LYMPHATIC: no lymphadenopathy noted Resp: COMMON NORMALS: normal respiratory effort, No retractions and No use of accessory muscles Cardio: COMMON NORMALS: no JVD and regular rate RATE: regular rate GI: OTHER: Abdomen soft. Nontender on palpation. Normal active bowel sounds throughout. Extremity: COMMON NORMALS: normal to inspection, full ROM and capillary refill normal Neuro: COMMON NORMALS: patient oriented x3 SENSORIUM/ORIENTATION: Yes alert Psych: COMMON NORMALS: mental status grossly normal, cooperative, normal affect, speech normal and activity/motor behavior normal SPEECH: Yes normal speech Course Vital Signs: Vital signs: Vital Signs Temperature 98.3 F 05/02/24 15:15 Pulse Rate 91 05/02/24 15:15 Respiratory Rate 16 05/02/24 15:15 Blood Pressure 99/68 05/02/24 15:15 Pulse Oximetry 96 05/02/24 15:15 Oxygen Delivery Me thod Room Air 05/02/24 15:15 MDM - Female Medical Decision Making Patient presents today with a 4 to 5-day history of dysuria and urinary frequency. She has been taking Azo without improvement. Patient's urine specimen is only partially run due to the staining of Azo causing an inability to read the specimen however, patient has findings of bacteria as well as yeast. Patient has not been on any antibiotics recently per her report. Explained that to treat urinary tract infection, would make yeast infection worse so we will need to address both at the same time. Also, given her reports of very regular issues with urinary symptoms requiring [id number] treatment with Azo, I did offer to provide her a referral to urology to discuss management of her recurrent urinary symptoms. Patient agreed to the referral. Patient will be treated with Macrobid, fluconazole, and have a request for repeat urinalysis after the course of antibiotics is complete to assure full resolution of her infection. She is to be seen and evaluated in the ER for any acute worsening. She verbalizes understanding and agreement to treatment plan. Differential Diagnosis Unlikely abdominal pain, acute appendicitis, calculus of kidney, constipation, gastroenteritis, pancreatitis or small bowel obstruction Lab Data 05/02/24 15:34 05/02/24 15:34 Laboratory Results WBC 9.40 10^3/uL (3.29-11.43) 05/02/24 15:34 RBC 4.63 10^6/uL (3.85-5.65) 05/02/24 15:34 Hgb 13.30 g/dL (11.27-16.99) 05/02/24 15:34 Hct 41.8 % (36-47) 05/02/24 15:34 MCV 90.3 fl (85-98) 05/02/24 15:34 MCH 28.7 pg (27-33) 05/02/24 15:34 MCHC 31.8 g/dL (30-55) 05/02/24 15:34 RDW 12.6 % (12.1-15.1) 05/02/24 15:34 Plt Count 283 10^3/cmm (157-399) 05/02/24 15:34 MPV 10.0 fL (7.4-10.4) 05/02/24 15:34 Neut % (Auto) 78.8 % 05/02/24 15:34 Lymph % (Auto) 14.1 % 05/02/24 15:34 [place] % (Auto) 5.4 % 05/02/24 15:34 Eos % (Auto) 1.0 % 05/02/24 15:34 Baso % (Auto) 0.4 % 05/02/24 15:34 Neut # (Auto) 7.40 10^3/uL (1.8-7.7) 05/02/24 15:34 Lymph # (Auto) 1.3 10^3/uL (0.8-4.8) 05/02/24 15:34 [place] # (Auto) 0.5 10^3/uL (0.2-0.9) 05/02/24 15:34 Eos # (Auto) 0.1 10^3/uL (0.0-0.8) 05/02/24 15:34 Baso # (Auto) 0.0 10^3/uL (0.0-0.1) 05/02/24 15:34 Nucleated RBC % (auto) 0 % 05/02/24 15:34 Nucleated RBCs # 0.0 /100WBC 05/02/24 15:34 HCG, Qual Negative (Negative) 05/02/24 15:34 Urine Color [place] (Yellow) A 05/02/24 15:30 Urine Appearance Slightly cloudy (CLEAR) 05/02/24 15:30 Urine pH TNP 05/02/24 15:30 Ur Specific [place] TNP 05/02/24 15:30 Urine Protein TNP 05/02/24 15:30 Urine Glucose (UA) TNP 05/02/24 15:30 Urine Ketones TNP 05/02/24 15:30 Urine Blood TNP 05/02/24 15:30 Urine Nitrate TNP 05/02/24 15:30 Urine Bilirubin TNP 05/02/24 15:30 Urine Urobilinogen TNP 05/02/24 15:30 Ur Leukocyte Esterase TNP 05/02/24 15:30 Urine RBC 10-15 /hpf (0-2) H 05/02/24 15:30 Urine WBC >100 /hpf (0-5) H 05/02/24 15:30 Ur Squamous Epith Cells 5-10 /hpf (0-5) H 05/02/24 15:30 Amorphous Sediment Not Reportable 05/02/24 15:30 Urine Bacteria 1+ /hpf (NONE) H 05/02/24 15:30 Urine Yeast 1+ /hpf H 05/02/24 15:30 No radiology studies performed this visit Discharge Plan Discharge Patient Disposition: Home Clinical Impression: Urinary tract infection, Vaginal [place]arna Condition: Stable Prescriptions: New fluconazole 150 mg tablet 150 mg PO Q3D Qty: 2 1RF Rx Instructions: may repeat second dose 72 hrs after first dose if symptoms persist nitrofurantoin monohyd/m-cryst [Macrobid] 100 mg capsule 100 mg PO BID 7 Days Qty: 14 0RF Rx Instructions: must administer with a meal/food No Action amoxicillin-pot clavulanate 875-125 mg tablet 1 tab PO BID 10 Days Qty: 20 0RF Discharge Orders: Discharge ED (Routine); Ordered 05/02/24 Ordered By: Sujey Bear Referrals: Eugenia Ramirez FNP [Primary Care Provider] - Discharge Diet: Usual diet Discharge Activity: Increase activity as tolerated Patient Instructions: Urinary Tract Infection in Women (ED), Yeast Infection (ED) Activity Restrictions/Additional Instructions: Urinalysis today does show findings of bacteria in your urine as well as yeast. Unfortunately, yeast infections often get worse with use of antibiotics so we will be treating you for yeast infection at the same time as providing antibiotics for urinary tract infection. As you indicated you often get urinary tract infections or urinary symptoms I have requested our case management workers reach out to you about getting you scheduled for follow-up with urology to talk about your recurrent urinary symptoms. If you develop fever, vomiting, or mid back pain we do recommend you be seen and reevaluated, otherwise, please have your urine checked by your primary care doctor after you finish your course of antibiotics to make sure all signs of infection have resolved. Coding Level of Care Code ED Rattling Machine Tender for Jaquan Locke
[2024-05-02 17:53] LABS: Alanine Aminotransferase 17 U/L (0-33); Albumin Level 4.4 g/dL (3.5-5.2); Alkaline Phosphatase 57 U/L (35-105); Anion Gap 14.5 (5-19); Aspartate Amino Transferase 16 U/L (0-32); Blood Urea Nitrogen 7 mg/dL (6-20); Calcium 9.3 mg/dL (8.5-10.5); Carbon Dioxide 25 mmol/L (22-29); Chloride 103 mmol/L (98-107); Creatinine Clr Calc Pharmacy 92.8031; Globulin 2.7 g/dL (1.3-4.6); Glomerular Filtration Rate 92.7 mL/min (90-130); Glucose 109 mg/dL (65-115); Osmolality Calculated 287 mOsm/kg (285-295); Potassium 3.5 mmol/L (3.5-5.1); Sodium 139 mmol/L (136-145); Total Bilirubin 0.5 mg/dL (0.15-1.2); Total Protein 7.1 g/dL (6.6-8.7)
--- NOTE | 2024-05-03 10:57 | DCPLANNER ---
Referral sent to [facility] urology -
== END 2024-05-02 17:56 | disposition home or self-care (01) ==
PROVIDERS: Emergency Medicine; Emergency Provider Physician Assistant; PCP Nurse Practitioner Family
DX: N39.0 Urinary tract infection, site not specified (principal); B37.31 Acute candidiasis of vulva and vagina; Z87.891 Personal history of nicotine dependence
CPT/HCPCS: 36415; 80053; 81003; 81015; 84703; 85025; 87077; 87086; 87186; 99283

== ENCOUNTER 2024-12-13 16:09 | Emergency (ER) | payer BC, MEDICAID, SELFPAY ==
[2024-12-13 16:18] VITALS: BP 111/75; PULSE 81; RESP 17; O2SAT 98; BMI 25.7
[2024-12-13] MEDS: dexamethasone 10 mg/mL INJ IM (17:36)
[2024-12-13] MEDS: ketorolac 30 mg/mL INJ IVP (17:37)
[2024-12-13] MEDS: orphenadrine 30 mg/mL Inj 2 mL 60 MG IM (17:38)
[2024-12-13 17:39] VITALS: BP 128/74; PULSE 85; O2SAT 95
[2024-12-13 17:40] LABS: Bilirubin Urine Negative (Negative); Blood Urine Negative (Negative); Glucose Urine UA Negative (Normal); Ketones Urine Negative (Negative); Leukocyte Esterase Urine 1+ (Negative); Nitrate Urine Negative (Negative); Protein Urine Negative (Negative); Specific Gravity, Urine 1.007 (1.005-1.030); Urine Appearance Clear (CLEAR); Urine Color Yellow (Yellow); Urobilinogen Urine 0.2 mg/dL (Negative); pH Urine 6.5 (5-7)
--- NOTE | 2024-12-13 17:43 | W.ED.BACK ---
HPI - Back Pain/Injury General: Chief Complaint: Back Pain/Injury Stated Complaint: lower back pain/pain left leg Time Seen by Provider: 12/13/24 16:54 History of Present Illness: 39-year-old female presents emergency room with complaint of back pain radiating into her left leg primarily of the anterior thigh. No weakness in the lower extremity. She has not had any difficulty with bowel or bladder. No trauma involved she felt kind of a popping sensation when she was going to sit down. No falls. No urinary retention patient reports she Ketty void without difficulty no fecal incontinence Associated symptoms: Deny abdominal pain, chills, dysuria, fever(s) or urinary urgency Related Data Previous Rx's ?Medication ?Instructions ?Recorded amoxicillin 875 mg-potassium 1 tab PO BID 10 days #20 tabs 12/17/23 clavulanate 125 mg tablet fluconazole 150 mg tablet 150 mg PO Q3D 2 doses #2 tabs 05/02/24 baclofen 5 mg tablet 5 mg PO TID PRN muscle spasm #30 12/13/24 tabs hydrocodone 5 mg-acetaminophen 325 1 tab PO Q4H PRN pain #30 tabs 12/13/24 mg tablet ibuprofen 800 mg tablet 800 mg PO TID #30 tabs 12/13/24 methylprednisolone 4 mg tablets in See Rx Instructions PO .COMPLEX 12/13/24 a dose pack (Medrol (Francisco)) #21 ea Allergies Allergy/AdvReac Type Severity Reaction Status Date / Time No Known Allergies Allergy Verified 12/17/23 15:09 Review of Systems Const: Denies: fever(s) or chills Card: Denies: chest pain Resp: Denies: dyspnea GI: Denies: abdominal pain : Denies: dysuria, urinary frequency or urinary urgency Musc: Denies: neck pain or back pain Skin/Breast: Denies: rash PFSH ED PFSH: Medical History Contraception management 11/21/2019: Laparoscopic bilateral complete salpingectomy. Dysmenorrhea Menorrhagia Surgical History History of tubal ligation (11/21/19) Laparoscopic bilateral complete salpingectomy. [place] [facility] [place], [place]. History of endometrial ablation (11/21/19) Hysteroscopy with NovaSure endometrial ablation. Dx menorrhagia, Dysmenorrhea. Per[place]. Coffman [place] [facility] [place]. Hx of laparoscopy (~2008) evaluation for pain. Diagnosed with endometriosis which was ablated. Performed at [facility] in [place]. History of cholecystectomy (~2002) Laparoscopic. Performed in [place]. Family History Grandfather Heart disease PATERNAL Mother Breast cancer Grandmother Breast cancer Maternal Family/Other Breast cancer GREAT-GRANDMOTHER Father Heart disease Social History Smoking and tobacco/nicotine status: never used tobacco/nicotine Quit status (tobacco/nicotine): has quit using Year quit tobacco: 2016 Former quit date comment: SMOKED FOR 2 YEARS; 1/2PPD Second hand smoke exposure: No Alcohol intake: current Alcohol intake frequency: holidays/special occasions only Alcohol type: wine Substance/Drug Use: never Lives independently: Yes Household members: significant other Marital status: Current occupational status: employed 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; 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 Current gender identity: Female Special eunice needs: Yes Agree to transfusion: Yes Physical Exam Const: COMMON NORMALS: no acute distress GENERAL APPEARANCE: cooperative ORIENTATION/CONSCIOUSNESS: Yes awake, Yes oriented to person, Yes oriented to place and Yes oriented to time HENMT: COMMON NORMALS: normocephalic, atraumatic and hearing grossly normal bilaterally HEAD & SCALP: normocephalic and atraumatic Resp: COMMON NORMALS: normal respiratory effort, No retractions, No use of accessory muscles and clear to auscultation bilaterally AUSCULTATION: clear to auscultation bilaterally Cardio: COMMON NORMALS: regular rate, regular rhythm and No murmurs present (Cardio) RATE: regular rate RHYTHM: regular rhythm Extremity: COMMON NORMALS: normal to inspection, capillary refill normal, no clubbing, cyanosis or edema, no calf tenderness and no pedal edema Neuro: SENSORIUM/ORIENTATION: Yes oriented to person, Yes oriented to place and Yes oriented to time OTHER: Deep tendon reflexes patellar tendon +1/4 on the left dorsum plantarflexion strength 5 out of 5 sensation lower extremity normal similar sensation in the anterior thigh Skin: COMMON NORMALS: no rashes or lesions noted GENERAL SKIN EXAM: no rashes or lesions noted Course Vital Signs: Vital signs: Vital Signs Pulse Rate 81 12/13/24 19:14 Respiratory Rate 17 12/13/24 16:18 Blood Pressure 131/68 12/13/24 19:14 Pulse Oximetry 98 12/13/24 19:14 Oxygen Delivery Me thod Room Air 12/13/24 17:39 MDM - Back Pain/Injury Medical Decision Making Discussed with trauma patient no trauma involved. No indication for imaging at this time. Care signed out to Dr. Montero at change of shift. See final notes for diagnosis and disposition. Labs Laboratory Results Urine Color Yellow (Yellow) 12/13/24 17:30 Urine Appearance Clear (CLEAR) 12/13/24 17:30 Urine pH 6.5 (5-7) 12/13/24 17:30 Ur Specific [place] 1.007 (1.005-1.030) 12/13/24 17:30 Urine Protein Negative (Negative) 12/13/24 17:30 Urine Glucose (UA) Negative (Normal) 12/13/24 17:30 Urine Ketones Negative (Negative) 12/13/24 17:30 Urine Blood Negative (Negative) 12/13/24 17:30 Urine Nitrate Negative (Negative) 12/13/24 17:30 Urine Bilirubin Negative (Negative) 12/13/24 17:30 Urine Urobilinogen 0.2 mg/dL (Negative) 12/13/24 17:30 Ur Leukocyte Esterase 1+ (Negative) A 12/13/24 17:30 Urine RBC 0-2 /hpf (0-2) 12/13/24 17:30 Urine WBC 0-5 /hpf (0-5) 12/13/24 17:30 Ur Squamous Epith Cells 0-5 /hpf (0-5) 12/13/24 17:30 Amorphous Sediment Not Reportable 12/13/24 17:30 Urine Bacteria None seen /hpf (NONE) 12/13/24 17:30 Hyaline Casts 0-4 /lpf H 12/13/24 17:30 No radiology studies performed this visit Discharge Plan Discharge Patient Disposition: Home Clinical Impression: Lumbar radiculopathy Condition: Stable Prescriptions: New ibuprofen 800 mg tablet 800 mg PO TID Qty: 30 0RF baclofen 5 mg tablet 5 mg PO TID PRN (Reason: muscle spasm) Qty: 30 0RF methylprednisolone [Medrol (Francisco)] 4 mg tablets,dose pack See Rx Instructions .ROUTE .COMPLEX Qty: 21 0RF Rx Instructions: for 6 days hydrocodone-acetaminophen 5-325 mg tablet 1 tab PO Q4H PRN (Reason: pain) Qty: 30 0RF No Action amoxicillin-pot clavulanate 875-125 mg tablet 1 tab PO BID 10 Days Qty: 20 0RF fluconazole 150 mg tablet 150 mg PO Q3D Qty: 2 1RF Rx Instructions: may repeat second dose 72 hrs after first dose if symptoms persist Discharge Orders: Discharge ED (Routine); Ordered 12/13/24 Ordered By: Armen Montero Referrals: Eugenia Ramirez FNP [Primary Care Provider] - Patient Instructions: Opioid Safety, Pain Management, Sciatica Activity Restrictions/Additional Instructions: Follow-up with your primary care provider in 1 week for recheck. If you continue to have symptoms you may need an MRI of your lumbar spine. Print Language: Senegalese Coding Level of Care Code ED Grocery Store Associate for Jaquan Locke
[2024-12-13 17:45] LABS: Add Urine Microscopic? YES; Bacteria Urine None Seen /hpf; Hyaline Casts Urine 0-4 /lpf; RBC Urine 0-2 /hpf (0-2); Squamous Epithelial Cell Urine 0-5 /hpf (0-5); WBC Urine 0-5 /hpf (0-5)
[2024-12-13 17:49] LABS: Add Urine Culture? No
[2024-12-13 19:14] VITALS: BP 131/68; PULSE 81; O2SAT 98
== END 2024-12-13 19:15 | disposition home or self-care (01) ==
PROVIDERS: Family Medicine; Emergency Provider Emergency Medicine; PCP Nurse Practitioner Family
DX: M54.16 Radiculopathy, lumbar region (principal); Z87.891 Personal history of nicotine dependence
CPT/HCPCS: 81001; 96372; 96374; 99284; J1100; J1885; J2360

== ENCOUNTER → 2024-12-19 08:17 | Outpatient (BNVA) | payer BC, MEDICAID, SELFPAY | PROVIDERS: PCP Nurse Practitioner Family; Visit Provider Orthopaedic Surgery | DX: M54.16 Radiculopathy, lumbar region (principal) | CPT/HCPCS: 72110 ==

== ENCOUNTER 2025-01-02 12:55 | Outpatient (CLI) | payer BC, MEDICAID, SELFPAY ==
--- NOTE | 2025-01-02 13:00 | MR_ITS ---
WS: [id number] MRI LUMBAR SPINE NONCONTRAST HISTORY: Back Pain, LEFT leg radiculopathy. COMPARISON: None available. TECHNIQUE: Sagittal and axial multisequence imaging is submitted. Normal lumbar alignment with no compression fractures or marrow edema. Minimal disc desiccation at L4-5 and L5-S1. Conus terminates normally at L1-2 disc level. L1-L2: RIGHT foraminal nerve root sleeve diverticulum. No stenosis. L2-L3: Normal. L3-L4: Bilateral mild facet joint arthritis. No stenosis. L4-L5: Small LEFT paracentral disc protrusion extends cephalad from the disc level. There is very minimal encroachment upon the traversing LEFT L5 nerve root without displacement or definite contact. L5-S1: Mild annular disc bulging. Disc protrusion is asymmetric and contacts both S1 nerve roots but much greater on the LEFT. Slight posterior displacement of the LEFT S1 nerve root. No foraminal stenosis. Paravertebral soft tissues are normal. MR/MR lumbar spine wo con* [id number] IMPRESSION: 1. LEFT paracentral and proximal foraminal disc protrusion at L5-S1. There is mild disc contact on the S1 nerve roots but much greater on the LEFT. LEFT S1 n erve root is being slightly displaced. 2. Small LEFT paracentral disc protrusion at L4-5 with minimal encroachment up on the traversing LEFT L5 nerve root but no displacement. No definite disc cont act on the nerve root.
== END 2025-01-02 12:56 | disposition home or self-care (01) ==
PROVIDERS: PCP Nurse Practitioner Family; Visit Provider Orthopaedic Surgery
DX: M51.27 Other intervertebral disc displacement, lumbosacral region (principal); R93.7 Abnormal findings on diagnostic imaging of other parts of musculoskeletal system; M51.26 Other intervertebral disc displacement, lumbar region; M47.896 Other spondylosis, lumbar region; M51.379 Other intervertebral disc degeneration, lumbosacral region without mention of lumbar back pain or lower extremity pain
CPT/HCPCS: 72148